=== PATIENT | male | born 1960 ===

== ENCOUNTER 2017-05-12 11:43 | Emergency (ER) | payer OTHER ==
[2017-05-12 11:57] VITALS: BMI 23.1
[2017-05-12 12:12] VITALS: RESP 18; TEMP 98
--- NOTE | 2017-05-12 12:48 | C.PDOC ---
History Of Present Illness 57 year old male is brought to the ED by his boss c/o left buttocks pain that started last night. 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 Patient states using Bengay and taking Tylenol with no relief. Patient denies weakness, numbness, incontinence, saddle anesthesia, abdominal pain, dysuria, hematuria. Time Seen by Provider: 05/12/17 12:07 Chief Complaint (Nursing): Back Pain History Per: Patient History/Exam Limitations: no limitations Onset/Duration Of Symptoms: Hrs Current Symptoms Are (Timing): Still Present Quality Of Discomfort: Cramping Severity: Mild Previous Symptoms: Back Pain Associated Symptoms: denies: Incontinence, New Weakness, New Numbness Exacerbating Factor(s): Movement Recent travel outside of the [place]: No Additional History Per: Patient Past Medical History Reviewed: Historical Data, Nursing Documentation, Vital Signs Vital Signs: Last Vital Signs Temp 98.0 F 05/12/17 13:50 Pulse 90 05/12/17 13:50 Resp 18 05/12/17 13:50 BP 109/69 05/12/17 13:50 Pulse Ox 100 05/12/17 18:53 - Medical History PMH: No Chronic Diseases Surgical History: No Surg Hx Family History: States: Unknown Family Hx - Social History Hx Alcohol Use: Yes Hx Substance Use: No - Immunization History Hx Tetanus Toxoid Vaccination: Yes Hx Influenza Vaccination: No Hx Pneumococcal Vaccination: No Review Of Systems Constitutional: Negative for: Fever, Chills Cardiovascular: Negative for: Chest Pain Respiratory: Negative for: Shortness of Breath Gastrointestinal: Negative for: Nausea, Vomiting, Abdominal Pain Genitourinary: Negative for: Incontinence Musculoskeletal: Positive for: Back Pain (Lower back) Skin: Negative for: Rash Neurological: Negative for: Weakness, Numbness Physical Exam - Physical Exam Appears: Non-toxic, In Acute Distress (secondary to pain) Skin: Normal Color, Warm, Dry Head: Atraumatic, Normacephalic Neck: Normal ROM, No Midline Cervical Tenderness, Supple Chest: Symmetrical, No Deformity, No Tenderness Cardiovascular: Rhythm Regular, No Murmur Respiratory: Normal Breath Sounds Gastrointestinal/Abdominal: Soft, No Tenderness Back: No CVA Tenderness, No Vertebral Tenderness, Other (tender in left buttock , no swelling or erythema) Extremity: Normal ROM (at the hip), Tenderness (Left buttocks), No Calf Tenderness, No Deformity, No Swelling Extremity: Bilateral: Atraumatic Pulses: Left Femoral: Normal, Right Femoral: Normal, Left Dorsalis Pedis: Normal , Right Dorsalis Pedis: Normal Neurological/Psych: Oriented x3, Normal Speech, Normal Cognition, Normal Motor, Normal Sensation ED Course And Treatment O2 Sat by Pulse Oximetry: 100 (On RA) Pulse Ox Interpretation: Normal Medical Decision Making Medical Decision Making: Plan: * Toradol 30 mg IM given * Tylenol 975 mg PO given * Valium 5 mg PO given Re-evaluation : 139 pm pt resting comfortably, will d/c with nsaids and muscle relaxant. pt ate sandwich, now sleeping. Disposition Counseled Patient/Family Regarding: Diagnosis, Need For Followup, Rx Given - Disposition Referrals: [facility] [Outside] Disposition: HOME/ ROUTINE Disposition Time: 13:42 Condition: IMPROVED Additional Instructions: Por favor, tome los medicamentos segn lo recetado. No trabaje ni maneje cuando tome el relajante muscular. Seguimiento en la clnica mdica. Aplique compresas tibias en reas dolorosas varias veces al da. 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 - Scribe Statement The provider has reviewed the documentation as recorded by the Scribe Juarez Sanchez All medical record entries made by the Scribe were at my direction and personally dictated by me. I have reviewed the chart and agree that the record accurately reflects my personal performance of the history, physical exam, medical decision making, and the department course for this patient. I have also personally directed, reviewed, and agree with the discharge instructions and disposition.
[2017-05-12 13:51] VITALS: BP 109/69; PULSE 90
[2017-05-12 18:51] VITALS: O2SAT 100
== END 2017-05-12 14:09 | disposition home or self-care (01) ==
LOC: C.ER 11:43
DX: M54.32 Sciatica, left side (principal)
CPT/HCPCS: 96372; 99284; J1885